=== PATIENT | female | born 1960 | race Caucasian/White ===

== ENCOUNTER 2018-03-24 09:16 | Day surgery (SDC) | payer BC ==
[2018-03-24] MEDS: MOXIFLOXACIN IN BSS 0.25MG/0.25ML INTRACAMERAL INJ (OR EYE ONLY)(J2280) As Ordered (06:52)
[~2018-03-24 09:16] MED LIST: ACETAMINOPHEN 325 MG TAB PO; MIDAZOLAM INJ 2 MG/2 ML VIAL (J2250) As Ordered; ONDANSETRON 4MG/2ML VIAL (J2405) As Ordered; PHENYLEPHRINE HCL 10 % OPHTH. SOL 5ML OS; fentaNYL 100 MCG/2 ML INJECTION (J3010) As Ordered
[2018-03-24] MEDS: LIDOCAINE 3.5 % 1ML OPHTH TOPICAL GEL OU (10:09)
[2018-03-24] MEDS: OFLOXACIN 0.3 % (OCUFLOX) OPTH SOL 5ML OS (10:09)
[2018-03-24] MEDS: PHENYLEPHRINE 2.5% OPHTH SOL 2ML OS (10:09)
[2018-03-24] MEDS: TROPICAMIDE 1% OPHTH SOLN 2ML OS (10:09)
[2018-03-24] MEDS: CYCLOPENTOLATE 2% OPHTH SOLN 2ML BTL OS (10:09)
[2018-03-24 10:10] LABS: BEDSIDE GLUCOSE 229 MG/DL (70-105)
[2018-03-24] MEDS: LIDOCAINE 1% SDV 5 ML VIAL As Ordered (11:58)
[2018-03-24] MEDS: POVIDONE-IODINE 5% OPHTH PREP SOL 30ML As Ordered (11:58)
[2018-03-24] MEDS: HEALON DUET (HEALON 10MG/ML 0.55ML & HEALON ENDOCOAT 30MG/ML 0.85ML) As Ordered (11:59)
[2018-03-24] MEDS: BSS with VANC/TOB/EPI for EYE CASES IR (11:59)
[2018-03-24] MEDS: TRIAMCINOLONE PRES FR 40 MG/ML 1ML(TRIESENCE)(OR EYE ONLY)(J3300 PER 1MG) As Ordered (11:59)
[2018-03-24] MEDS: ACETYLCHOLINE OPHTH SOLN 1% 2ML (MIOCHOL-E) As Ordered (12:09)
[2018-03-24 12:24] LABS: BEDSIDE GLUCOSE 264 MG/DL (70-105)
[2018-03-24] MEDS: AcetaZOLAMIDE 500 MG ER CAP PO (12:35)
[2018-03-24] MEDS ORDERED: AcetaZOLAMIDE 500 MG ER CAP As Ordered (12:35)
[2018-03-24] MEDS ORDERED: TRIMETHOBENZAMIDE 300 MG CAP PO (13:00)
== END 2018-03-24 13:15 | disposition home or self-care (01) ==
LOC: M SDC 09:16
DX: H26.9 Unspecified cataract (principal); H57.03 Miosis; I10 Essential (primary) hypertension; E10.8 Type 1 diabetes mellitus with unspecified complications; E78.00 Pure hypercholesterolemia, unspecified; D63.8 Anemia in other chronic diseases classified elsewhere; M12.9 Arthropathy, unspecified; M54.9 Dorsalgia, unspecified; Z79.899 Other long term (current) drug therapy; Z79.4 Long term (current) use of insulin; Z79.82 Long term (current) use of aspirin; Z78.0 Asymptomatic menopausal state; Z72.0 Tobacco use
CPT/HCPCS: 66982

== ENCOUNTER → 2020-03-23 | Outpatient (REF) | payer BC ==
[~2020-03-23] MED LIST changes: -ACETAMINOPHEN 325 MG TAB PO; +ASPI81TA26 PO; +HUMA100I5; +IRBE150T7 PO; -MIDAZOLAM INJ 2 MG/2 ML VIAL (J2250) As Ordered; +MULT1TAB10 PO; -ONDANSETRON 4MG/2ML VIAL (J2405) As Ordered; -PHENYLEPHRINE HCL 10 % OPHTH. SOL 5ML OS; +TRES1INJ2; -fentaNYL 100 MCG/2 ML INJECTION (J3010) As Ordered
[2020-03-23 18:43] LABS: MALB URINE SIEMENS 61.6 MG/L; MAU/CREAT RATIO 57.5 MCG/MG (0.0-30.0)
== END ==
LOC: M LAB REF 17:00
PROVIDERS: ATTEND Nurse Practitioner Family
DX: E10.65 Type 1 diabetes mellitus with hyperglycemia (principal)